=== PATIENT | female | born 1940 ===

== ENCOUNTER 2020-10-15 13:32 | Outpatient (REF) | payer MEDICARE, MEDICAID, SELFPAY ==
--- NOTE | 2020-10-15 13:37 | CT_ITS ---
EXAMINATION: CT HEAD WITHOUT CONTRAST CLINICAL INFORMATION: Dementia without behavioral disturbance. COMPARISON: None TECHNIQUE: Contiguous axial imaging was performed from the skull base to vertex without intravenous administration of contrast. This CT examination was performed using dose optimization techniques as appropriate, variously including the following: *Automated exposure control *Adjustment of mA and/or kV according to patient size (this includes techniques or standardized protocols for targeted exams where dose is matched to indication/reason for exam; i.e. extremities or head) *Use of iterative reconstruction technique DLP: 607 mGy-cm FINDINGS: There is no evidence of acute intracranial hemorrhage or territorial infarction. No abnormal mass effect or midline shift is seen. Louis to white matter differentiation is well preserved. No extra-axial fluid collections are identified. The lateral ventricles are enlarged with mild cortical sulcal prominence. There is diffuse periventricular hypodensity suggestive of chronic small vessel ischemic changes The osseous structures and soft tissues are normal. The mastoid air cells and visualized portions of the paranasal sinuses are well aerated. CT/CT head/brain wo con IMPRESSION: No acute intracranial process seen. There is no scalp soft tissue abnormality. Bilateral paranasal sinuses and mastoid air cells are well-aerated.
== END 2020-10-15 13:33 | disposition home or self-care (01) ==
LOC: HO.CT 13:32
PROVIDERS: PCP Internal Medicine; Visit Provider Internal Medicine
DX: F03.90 Unspecified dementia, unspecified severity, without behavioral disturbance, psychotic disturbance, mood disturbance, and anxiety (principal); R41.82 Altered mental status, unspecified
CPT/HCPCS: 70450

== ENCOUNTER 2024-09-17 08:58 | Emergency (ER) | payer MEDICARE, MEDICAID, SELFPAY ==
--- NOTE | ~2024-09-17 | XR_ITS ---
EXAMINATION: Right forearm and right tibia and fibula. COMPARISON: None. CLINICAL INDICATION: Fall, bruising right lower extremity. FINDINGS: RIGHT FOREARM 2 VIEWS: There is no visible acute fracture, bony abnormality or soft tissue laceration or swelling. RIGHT TIBIA AND FIBULA 2 VIEWS: There is no visible acute fracture or bony abnormality. Especially no abnormality seen in the proximal right lower leg. The soft tissues are normal. XR/XR forearm RT 2V IMPRESSION: Unremarkable right forearm exam. Unremarkable right tibia and fibula. Electronically signed by: Arthur Salinas MD 09/17/2024 10:56 AM EST
--- NOTE | ~2024-09-17 | CT_ITS ---
Examination: CT chest, CT abdomen and pelvis with IV contrast. CLINICAL INDICATION: Trauma. COMPARISON: None. TECHNIQUE: 5 mm thin axial and reformatted 3 mm thin sagittal and coronal images of chest, abdomen and pelvis without and following IV 85 mL Omnipaque 350. DOSE LOWERING TECHNIQUES: This CT examination was performed using dose optimization techniques as appropriate, variously including the following: - Automated exposure control - Adjustment of mA and/or kV according to patient size (this includes techniques or standardized protocols for targeted exams where dose is matched to indication/reason for exam; i.e. extremities or head) - Use of iterative reconstruction technique DLP: 1225 FINDINGS: Chest: The lungs are fairly well-expanded and clear acute pneumonic process, contusion or consolidation. Thyroid lobes are symmetrical. The central trachea and the bronchi are widely patent. The heart size is borderline normal. There is good opacification of aorta without dissection or aneurysm. The pulmonary artery is well-opacified. There is mild coronary artery calcification present. No pericardial effusion seen. No abnormal sized mediastinal or hilar lymph nodes seen. There is no pleural effusion or thickening. The axilla and the chest wall is unremarkable. Bone windows reveal no lytic or sclerotic process seen. Abdomen and pelvis: The liver is normal size, homogeneous density and normal contour. No focal lesion or intrahepatic ductal dilatation. The gallbladder is contracted and not visualized. Visualized spleen, pancreas and bilateral adrenal glands are unremarkable. There is normal symmetrical kidney nephrograms without radiopaque calculi or hydronephrosis. There is bilateral extrarenal kidney pelvises. Perinephric soft tissues are normal. The abdominal aorta is of normal caliber. No abnormal size retroperitoneal lymph nodes or mass seen. Scattered stool, diverticuli are seen in colon without diverticulitis or colonic distention. Appendix is not visualized. The small bowel loops are normal caliber. The stomach is nondistended. Is likely hysterectomy changes. The urinary bladder is unremarkable. There is no free fluid in the pelvis No aggressive lytic or sclerotic process seen. There is inferior endplate Schmorl's node T12 vertebra. CT/CT abdomen pelvis w IV con IMPRESSION: No acute process in the chest, abdomen and pelvis. Colonic diverticulosis without diverticulitis There are no osseous abnormality. Electronically signed by: Arthur Salinas MD 09/17/2024 12:25 PM [facility]
--- NOTE | ~2024-09-17 | XR_ITS ---
EXAMINATION: Right forearm and right tibia and fibula. COMPARISON: None. CLINICAL INDICATION: Fall, bruising right lower extremity. FINDINGS: RIGHT FOREARM 2 VIEWS: There is no visible acute fracture, bony abnormality or soft tissue laceration or swelling. RIGHT TIBIA AND FIBULA 2 VIEWS: There is no visible acute fracture or bony abnormality. Especially no abnormality seen in the proximal right lower leg. The soft tissues are normal. XR/XR tibia fibula RT 2V IMPRESSION: Unremarkable right forearm exam. Unremarkable right tibia and fibula. Electronically signed by: Arthur Salinas MD 09/17/2024 10:56 AM [facility]
--- NOTE | ~2024-09-17 | CT_ITS ---
EXAMINATION: CT brain, CT cervical spine and CT facial bones without contrast. CLINICAL INDICATION: Fall, head strike. COMPARISON: None. TECHNIQUE: Axial 5 mm thin and reformatted 2 mm thin sagittal and coronal images of cervical spine were obtained. Subsequently axial 3 mm thin and reformatted 2 mm thin sagittal and coronal images of cervical spine were obtained. Lastly axial 1.5 mm thin and reformatted 1.5 mm thin sagittal and coronal images of cervical spine were obtained. DLP 1217. DOSE LOWERING TECHNIQUES: This CT examination was performed using dose optimization techniques as appropriate, variously including the following: - Automated exposure control - Adjustment of mA and/or kV according to patient size (this includes techniques or standardized protocols for targeted exams where dose is matched to indication/reason for exam; i.e. extremities or head) - Use of iterative reconstruction technique. FINDINGS: BRAIN: There is no acute intra-axial, extra-axial bleed, masses or midline shift. There is no acute infarction in evolution. The radial white matter differentiation is maintained normal. The lateral ventricles are symmetrical in size and configuration without enlargement. There is a left frontal scalp hematoma without calvarial fracture. Bilateral paranasal sinuses and mastoid air cells are well-aerated. CERVICAL SPINE: On sagittal reconstructed images there is mild straightening of cervical lordosis. There is loss of C6-C7 disc height with moderate ventral spondylosis. Rest of the disc heights are normal. The vertebral heights and alignment is preserved. The craniovertebral junction and the C1-C2 alignment is normal. There is no visible acute fracture, dislocation or subluxation seen. The prevertebral and paravertebral soft tissues are normal. The airway appears widely patent. The lung apices are clear. FACIAL BONES: The paranasal sinuses and visualized mastoid air cells are well-aerated. The maxillofacial, nasal bones are intact. The lamina of the pressure and the cribriform plate appears normal. Bilateral TM joints and the mandible appears intact. The soft tissues are normal. CT/CT cervical spine wo IV con IMPRESSION: Left frontal scalp hematoma without calvarial fracture or intracranial bleed. Unremarkable CT facial bones. Mild straightening of cervical lordosis with degenerative disc changes and ventral cervical spondylosis C6-C7 disc level. No acute fracture or dislocation seen. Electronically signed by: Arthur Salinas MD 09/17/2024 11:55 AM EST
--- NOTE | ~2024-09-17 | CT_ITS ---
Examination: CT chest, CT abdomen and pelvis with IV contrast. CLINICAL INDICATION: Trauma. COMPARISON: None. TECHNIQUE: 5 mm thin axial and reformatted 3 mm thin sagittal and coronal images of chest, abdomen and pelvis without and following IV 85 mL Omnipaque 350. DOSE LOWERING TECHNIQUES: This CT examination was performed using dose optimization techniques as appropriate, variously including the following: - Automated exposure control - Adjustment of mA and/or kV according to patient size (this includes techniques or standardized protocols for targeted exams where dose is matched to indication/reason for exam; i.e. extremities or head) - Use of iterative reconstruction technique DLP: 1225 FINDINGS: Chest: The lungs are fairly well-expanded and clear acute pneumonic process, contusion or consolidation. Thyroid lobes are symmetrical. The central trachea and the bronchi are widely patent. The heart size is borderline normal. There is good opacification of aorta without dissection or aneurysm. The pulmonary artery is well-opacified. There is mild coronary artery calcification present. No pericardial effusion seen. No abnormal sized mediastinal or hilar lymph nodes seen. There is no pleural effusion or thickening. The axilla and the chest wall is unremarkable. Bone windows reveal no lytic or sclerotic process seen. Abdomen and pelvis: The liver is normal size, homogeneous density and normal contour. No focal lesion or intrahepatic ductal dilatation. The gallbladder is contracted and not visualized. Visualized spleen, pancreas and bilateral adrenal glands are unremarkable. There is normal symmetrical kidney nephrograms without radiopaque calculi or hydronephrosis. There is bilateral extrarenal kidney pelvises. Perinephric soft tissues are normal. The abdominal aorta is of normal caliber. No abnormal size retroperitoneal lymph nodes or mass seen. Scattered stool, diverticuli are seen in colon without diverticulitis or colonic distention. Appendix is not visualized. The small bowel loops are normal caliber. The stomach is nondistended. Is likely hysterectomy changes. The urinary bladder is unremarkable. There is no free fluid in the pelvis No aggressive lytic or sclerotic process seen. There is inferior endplate Schmorl's node T12 vertebra. CT/CT chest w IV con IMPRESSION: No acute process in the chest, abdomen and pelvis. Colonic diverticulosis without diverticulitis There are no osseous abnormality. Electronically signed by: Arthur Salinas MD 09/17/2024 12:25 PM [facility] [place]
[2024-09-17 09:08] VITALS: BP 216/76; PULSE 56; RESP 16; TEMP 36.6; O2SAT 97; BMI 29.4
--- NOTE | 2024-09-17 10:09 | ED_ITS ---
HPI - General Adult General Chief complaint: Trauma Stated complaint: Fall - facial lacs Time Seen by Provider: 09/17/24 09:14 Source: patient and family (patient's daughter and granddaughter) Mode of arrival: ambulatory Limitations: language barrier (patient declined [facility] [place] seismic interpreter - requested to use family member. ) History of Present Illness ED Provider: Nica Garcia PA-C HPI narrative: Patient is an 84 year old assigned female at with a history of HTN presenting to the emergency department today with left forehead laceration after a fall. Patient states that she tripped and fell down 8 stairs, hitting her head. Patient's daughter states that she witnessed the fall and the patient did fall down 8 steps but did not lose consciousness. Patient states that she is not on any anti-coagulant medications. Patient denies any dizziness, lightheadedness, abdominal pain, nausea, vomiting, fever, chills, blurry vision, double vision, loss of vision, chest pain, difficulty breathing, shortness of breath, back pain, night sweats, pain with urination, increased urinary frequency, increased urinary urgency, blood in her urine or stool, syncope or a near syncopal episode, bowel incontinence, bladder incontinence, or any other complaints at this time. Relieving factors: none Exacerbating factors: none Associated symptoms: denies other symptoms Treatments prior to arrival: none Related Data Previous Rx's ?Medication ?Instructions ?Recorded amoxicillin 875 mg-potassium 1 tab PO BID 10 days #20 tabs 09/17/24 clavulanate 125 mg tablet potassium chloride 10 mEq 10 meq PO DAILY 7 days #7 tabs 09/17/24 tablet,extended release (Klor-Con) Allergies Allergy/AdvReac Type Severity Reaction Status Date / Time No Known Allergies Allergy Verified 09/17/24 09:10 Review of Systems 2 Constitutional: Constitutional: Reports no additional constitutional complaints, Denies chills, Denies fever(s) and Denies night sweats Eyes: Eyes: Reports no additional eye complaints, Denies blurry vision, Denies change in vision, Denies diplopia, Denies eye discharge, Denies loss of vision and Denies eye pain ENT: Denies dizziness Comments: left forehead laceration left forehead abrasion nasal abrasion Cardiovascular: Cardiovascular: Reports no additional cardiovascular complaints, Denies chest pain, Denies lightheadedness, Denies Loss of Consciousness and Denies dyspnea Respiratory: Respiratory: Reports no additional respiratory complaints and Denies dyspnea Gastrointestinal: Gastrointestinal: Reports no additional gastrointestinal complaints, Denies abdominal pain, Denies melena, Denies hematochezia, Denies change in bowel habits and Denies change in stool character Genitourinary: Genitourinary: Denies hematuria, Denies urinary frequency, Denies dysuria, Denies urinary incontinence, Denies urinary hesitancy and Denies urinary urgency Musculoskeletal: Musculoskeletal: Reports no additional musculoskeletal complaints, Denies numbness and Denies tingling Neurologic: Denies dizziness, Denies loss of vision, Denies numbness and Denies tingling Psychiatric: Psychiatric: Reports no additional psychiatric complaints Endocrine: Endocrine: Reports no additional endocrine complaints Hematologic/Lymphatic: Hematologic/Lymphatic: Reports no additional hematologic/lymphatic complaints Allergic/Immunologic: Allergic/Immunologic: Reports no additional allergic/immunologic complaints PMFSH Past Medical History Attestation statement: The following information was validated with the patient. Source: old records reviewed and nursing notes reviewed Physical Exam ED Vital Signs: Vital Signs - 24 hr 09/17/24 09:08 09/17/24 12:57 Temperature 98 F 98.1 F Pulse Rate 56 59 Respiratory Rate 16 16 Blood Pressure 216/76 H 184/89 H Pulse Oximetry 97 97 Oxygen Delivery Method Room Air Room Air BMI result Body Mass Index 29.4 Const General: cooperative, no acute distress, alert and awake Nutritional Appearance: well nourished Orientation/consciousness: patient oriented x3 Limitations: no limitations HENMT Head: Yes normal to inspection Ears: hearing grossly normal bilaterally and external ears normal General nose exam: no nasal discharge noted, no epistaxis and Other nasal findings present (abrasion present to the bridge of the nose) Face images: 2 1. superficial abrasion / skin tear - no active bleeding 2. superficial laceration / skin tear - no active bleeding 3. abrasion - no active bleeding Mouth: Normal oral and palatal mucosa present, no drooling and no muffled voice Eyes General: appearance normal, both eyes and all related structures Periorbital: periorbital findings normal Eyelids: Yes eyelids normal Conjunctivae: conjunctivae normal Pupils: Equal, round and reactive pupils present EOM: EOMs intact bilaterally Neck Neck: Yes normal visual inspection, Yes full ROM and Yes no lymphadenopathy Chest Chest palpation & inspection: normal inspection of the chest Resp Effort & Inspection: normal respiratory effort and able to speak in complete sentences GI Inspection: Yes normal to inspection Neuro General: patient oriented x3 and moves all extremities Cranial nerves: Yes Equal, round and reactive pupils present Cognition (Neuro): normal cognition Extrem General: Yes full ROM and Yes capillary refill normal Elbow/forearm/wrist images: 2 1. skin tear - no active bleeding Hand/finger images: 2 1. partially avulsed right thumb nail Psych Appearance: grossly normal Mental Status: mental status grossly normal Affect: normal affect Attitude: cooperative Thought process: Normal thought process present Thought content: Normal thought content present Insight: Good insight present (Psych) Medications Administered Discontinued Medications Generic Name Dose Route Start Last Admin Trade Name Freq PRN Reason Stop Dose Admin Diphtheria/Tetanus/Acell Pertussis 0.5 ml 09/17/24 12:36 09/17/24 12:51 Diphth,Pertus(Acell),Tet Adult 0.5 Ml Syringe IM 09/17/24 12:37 0.5 ml .ONCE ONE Administration Potassium Chloride 10 meq in 100 mls @ 100 mls/hr 09/17/24 11:15 09/17/24 12:41 Potassium Chloride/H20 IV 09/17/24 15:14 Infused Q1H LEIDA Infusion Potassium Chloride 10 meq in 100 mls @ 100 mls/hr 09/17/24 12:31 09/17/24 12:52 Potassium Chloride/H20 IV 09/17/24 13:30 Not Given ONCE ONE Iohexol 100 ml 09/17/24 11:42 09/17/24 11:42 Iohexol 350 Mg/Ml 100 Ml Infus..Btl IV 09/17/24 11:43 85 ml ONCE ONE Administration Potassium Chloride 40 meq 09/17/24 12:31 09/17/24 12:51 Potassium Chloride Packet 20 Meq Packet PO 09/17/24 12:32 40 meq ONCE ONE Administration Procedures Procedure Narrative Procedure Narrative: patient had a partially avulsed right thumb nail that the patient and her family requested I trim down. Patient's right thumb nail was partially removed revealing an intact but exposed nail bed. Patient's nail was partially removed and the nail bed was covered with a non adherent bandage - without incident. Laceration Laceration 1: Site: face Side (If applicable): left Size (cm): 1 Description: irregular Depth: simple, single layer Pre-repair: irrigated extensively and deep structures intact Skin layer closed with: other (dermabond) Size (cm): other (dermabond) Technique: other (dermabond) Laceration 2: Site: face Side (If applicable): left Size (cm): 1.5 Description: irregular Depth: simple, single layer Pre-repair: irrigated extensively and deep structures intact Skin layer closed with: other (dermabond) Size (cm): other (dermabond) Technique: other (dermabond) right dorsal forearm: Site: upper extremity Side (If applicable): right Size (cm): 2 Description: irregular Depth: simple, single layer Pre-repair: deep structures intact Skin layer closed with: other (dermabond) Size (cm): other (dermabond) Technique: other (dermabond) Medical Decision Making Medical Decision Making MDM Narrative: Patient is an 84 year old assigned female at with a history of HTN presenting to the emergency department today with left forehead laceration after a fall. Patient's physical exam was as noted in the physical exam portion of this note. Patient's blood work showed a mildly elevated WBC count of 12.1 and a potassium of 3.0 but were otherwise unremarkable. Patient's right forearm and tib fib x-rays showed no acute process. Patient's CT head, c-spine, chest, and abdomen/pelvis showed no acute process. I explained my physical exam findings as well as all test results to the patient, the patient's daughter, and the patient's grand daughter. I answered all questions asked by the patient, the patient's daughter, and the patient's grand daughter. Patient was brought up to date on her tetanus status. Patient was given IV and PO Potassium. Patient stated that she did not want to remain in the department for the full 40 meq potassium IV and would prefer to do the other portion PO. Orders were modified accordingly. Patient's numerous skin tears / laceration was repaired with dermabond - per procedure notes, without incident. Patient's partially avulsed right thumb nail was addressed, per the procedure note, without incident. Patient's PMS was intact prior to and after all wound repair / procedures. I stressed the importance of the patient taking her medication as directed (either prescribed or as the over the counter packaging recommends). I stressed the importance of the patient following up with her primary care provider. I stressed the importance of the patient returning to the emergency department immediately if her symptoms were to worsen or if she were to develop any dizziness, shortness of breath, difficulty breathing, chest pain, blurry vision, loss of vision, nausea, vomiting, abdominal pain, fever, chills, back pain, or any other complaints. Patient, the patient's daughter, and the patient's granddaughter verbalized agreement and understanding with this treatment plan and discharge. Differential Diagnosis Differential Diagnoses: The differential diagnosis associated with the presentation includes Fall Hypokalemia Forehead laceration Forehead skin tear Right forearm skin tear Admission/Observation Consideration of admission/observation: Escalation of care including admission/observation considered Patient would have been admitted to the hospital had her work up had any findings where hospital admission was appropriate and her clinical presentation warranted hospital admission. Lab Data [facility] Lab Attestation statement: I reviewed the patient's lab results. My interpretation of these results are in the [facility] Rationale portion of this note. 09/17/24 10:24 09/17/24 10:24 Labs: Lab Results 09/17/24 Range/Units 10:24 WBC 12.1 H (4.8-10.8) X10*3/uL RBC 5.08 (4.20-5.50) X10*6/uL Hgb 14.1 (12.0-16.0) g/dl Hct 42.7 (37.0-47.0) % MCV 84.1 (80.0-98.0) fL MCH 27.8 (27.0-33.0) pg MCHC 33.0 (31.0-35.0) g/dl RDW 12.8 (11.0-16.0) % Plt Count 225 (160-400) X10*3/uL MPV 10.4 (9.4-12.3) fL Immature Gran % (Auto) 0.8 H (0.0-0.4) % Neut % (Auto) 80.5 H (45-73) % Lymph % (Auto) 11.8 L (20-40) % Butler % (Auto) 5.9 (2-11) % Eos % (Auto) 0.7 (0-4) % Baso % (Auto) 0.3 (0-2) % Lymph # (Auto) 1.4 (1.2-4.9) X10*3/uL Butler # (Auto) 0.7 (0.1-1.2) X10*3/uL Eos # (Auto) 0.1 (0.0-0.4) X10*3/uL Baso # (Auto) 0.0 (0.0-0.2) X10*3/uL Abs Immat Gran (auto) 0.10 H (0.00-0.03) X10*3/uL Absolute Neuts (auto) 9.7 H (2.0-8.3) x10*3/uL Absolute Nucleated RBC 0.000 (0.0-0.012) X10*3/uL Nucleated RBC % (auto) 0.0 (0.0-0.2) /100WBC PT 11.0 (10.9-12.4) SEC INR 0.9 (0.9-1.1) Sodium 141 (135-145) mmol/L Potassium 3.0 L (3.3-5.1) mmol/L Chloride 106 (96-108) mmol/L Carbon Dioxide 28 (22-29) mmol/L Anion Gap 10 L (12-20) BUN 13 (9-16) mg/dL Creatinine 1.19 (0.5-1.4) mg/dL Estim Creat Clear Calc 30.1 Estimated GFR 43 Random Glucose 113 (60-115) mg/dL Calcium 9.4 (8.4-10.2) mg/dL Magnesium 2.0 (1.6-2.6) mg/dL Total Bilirubin 0.9 (0.0-1.0) mg/dL AST 31 (5-31) U/L ALT 12 (0-31) U/L Alkaline Phosphatase 65 (39-117) U/L Total Protein 7.9 (6.5-8.0) g/dL Albumin 3.7 (3.5-5.0) g/dL Independent Interpretation I performed an independent interpretation of an: Plain X-Ray and CT Scan Interpretation: My interpretation is in agreement with the radiologist's impression of these imaging studies. L Report Number: [id number]: Total DLP = 1217.00 mGy-cm EXAMINATION: CT brain, CT cervical spine and CT facial bones without contrast. CLINICAL INDICATION: Fall, head strike. COMPARISON: None. TECHNIQUE: Axial 5 mm thin and reformatted 2 mm thin sagittal and coronal images of cervical spine were obtained. Subsequently axial 3 mm thin and reformatted 2 mm thin sagittal and coronal images of cervical spine were obtained. Lastly axial 1.5 mm thin and reformatted 1.5 mm thin sagittal and coronal images of cervical spine were obtained. DLP 1217. DOSE LOWERING TECHNIQUES: This CT examination was performed using dose optimization techniques as appropriate, variously including the following: - Automated exposure control - Adjustment of mA and/or kV according to patient size (this includes techniques or standardized protocols for targeted exams where dose is matched to indication/reason for exam; i.e. extremities or head) - Use of iterative reconstruction technique. FINDINGS: BRAIN: There is no acute intra-axial, extra-axial bleed, masses or midline shift. There is no acute infarction in evolution. The radial white matter differentiation is maintained normal. The lateral ventricles are symmetrical in size and configuration without enlargement. There is a left frontal scalp hematoma without calvarial fracture. Bilateral paranasal sinuses and mastoid air cells are well-aerated. CERVICAL SPINE: On sagittal reconstructed images there is mild straightening of cervical lordosis. There is loss of C6-C7 disc height with moderate ventral spondylosis. Rest of the disc heights are normal. The vertebral heights and alignment is preserved. The craniovertebral junction and the C1-C2 alignment is normal. There is no visible acute fracture, dislocation or subluxation seen. The prevertebral and paravertebral soft tissues are normal. The airway appears widely patent. The lung apices are clear. FACIAL BONES: The paranasal sinuses and visualized mastoid air cells are well- aerated. The maxillofacial, nasal bones are intact. The lamina of the pressure and the cribriform plate appears normal. Bilateral TM joints and the mandible appears intact. The soft tissues are normal. CT/CT cervical spine wo IV con IMPRESSION: Left frontal scalp hematoma without calvarial fracture or intracranial bleed. Unremarkable CT facial bones. Mild straightening of cervical lordosis with degenerative disc changes and ventral cervical spondylosis C6-C7 disc level. No acute fracture or dislocation seen. Electronically signed by: Arthur Salinas MD 09/17/2024 11:55 AM EST Dictated By: Arthur Salinas MD Signed By: Electronically signed by Arthur Salinas MD 09/17/24 1155 EXAMINATION: Right forearm and right tibia and fibula. COMPARISON: None. CLINICAL INDICATION: Fall, bruising right lower extremity. FINDINGS: RIGHT FOREARM 2 VIEWS: There is no visible acute fracture, bony abnormality or soft tissue laceration or swelling. RIGHT TIBIA AND FIBULA 2 VIEWS: There is no visible acute fracture or bony abnormality. Especially no abnormality seen in the proximal right lower leg. The soft tissues are normal. XR/XR forearm RT 2V IMPRESSION: Unremarkable right forearm exam. Unremarkable right tibia and fibula. Electronically signed by: Arthur Salinas MD 09/17/2024 10:56 AM EST Dictated By: Arthur Salinas MD Signed By: Electronically signed by Arthur Salinas MD 09/17/24 1056 Report Number: [id number]: Total DLP = 1225.00 mGy-cm Examination: CT chest, CT abdomen and pelvis with IV contrast. CLINICAL INDICATION: Trauma. COMPARISON: None. TECHNIQUE: 5 mm thin axial and reformatted 3 mm thin sagittal and coronal images of chest, abdomen and pelvis without and following IV 85 mL Omnipaque 350. DOSE LOWERING TECHNIQUES: This CT examination was performed using dose optimization techniques as appropriate, variously including the following: - Automated exposure control - Adjustment of mA and/or kV according to patient size (this includes techniques or standardized protocols for targeted exams where dose is matched to indication/reason for exam; i.e. extremities or head) - Use of iterative reconstruction technique DLP: 1225 FINDINGS: Chest: The lungs are fairly well-expanded and clear acute pneumonic process, contusion or consolidation. Thyroid lobes are symmetrical. The central trachea and the bronchi are widely patent. The heart size is borderline normal. There is good opacification of aorta without dissection or aneurysm. The pulmonary artery is well-opacified. There is mild coronary artery calcification present. No pericardial effusion seen. No abnormal sized mediastinal or hilar lymph nodes seen. There is no pleural effusion or thickening. The axilla and the chest wall is unremarkable. Bone windows reveal no lytic or sclerotic process seen. Abdomen and pelvis: The liver is normal size, homogeneous density and normal contour. No focal lesion or intrahepatic ductal dilatation. The gallbladder is contracted and not visualized. Visualized spleen, pancreas and bilateral adrenal glands are unremarkable. There is normal symmetrical kidney nephrograms without radiopaque calculi or hydronephrosis. There is bilateral extrarenal kidney pelvises. Perinephric soft tissues are normal. The abdominal aorta is of normal caliber. No abnormal size retroperitoneal lymph nodes or mass seen. Scattered stool, diverticuli are seen in colon without diverticulitis or colonic distention. Appendix is not visualized. The small bowel loops are normal caliber. The stomach is nondistended. Is likely hysterectomy changes. The urinary bladder is unremarkable. There is no free fluid in the pelvis No aggressive lytic or sclerotic process seen. There is inferior endplate Schmorl's node T12 vertebra. CT/CT abdomen pelvis w IV con IMPRESSION: No acute process in the chest, abdomen and pelvis. Colonic diverticulosis without diverticulitis There are no osseous abnormality. Electronically signed by: Arthur Salinas MD 09/17/2024 12:25 PM [facility] [place] Dictated By: Arthur Salinas MD Signed By: Electronically signed by Arthur Salinas MD 09/17/24 1225 Radiology Impression Discussion of test interpretation with radiology: I have reviewed the radiologist's reading. Independent Historian Clinical information obtained from an independent historian. History obtained from or confirmed by: Other (patient's daughter and grand daughter provided additional history and confirmed the history provided by the patient.) Prescription Management I considered prescription management with: Antibiotic (patient given a prophylactic antibiotic given her mechanism of injury and clinical presentation) Critical Care Time Critical Care Time Critical Care Time: Yes Total Critical Care Time: 41 Attestation: I spent 41 minutes of Critical Care Time with this patient. This does not include time spent on separately reported billable procedures. Discharge Plan Discharge Clinical Impression: Fall, Abrasion, Skin tear of right upper extremity, Avulsion of nail of right thumb, Acute hypokalemia Patient Disposition: Home, Self-Care Instructions: Potassium Content of Foods List (ED), Hypokalemia (ED), Fall Prevention for Older Adults (ED), Skin Adhesive Care (ED), Nail Avulsion (ED) Additional Instructions: Do NOT get the areas with skin adhesive wet (left side of forehead and right forearm). The skin adhesive will dissolve / fall off on it's own. Follow up with your primary care provider. Take your antibiotic as prescribed. Return to the emergency department immediately if your symptoms worsen or if you develop any dizziness, shortness of breath, difficulty breathing, chest pain, blurry vision, loss of vision, nausea, vomiting, abdominal pain, fever, chills, back pain, or any other complaints. NO moje las zonas con adhesivo cut?alba (lado gregg de la frente y antebrazo derecho). El adhesivo cut?alba se disolver? / caer? por s? solo. Consulte a pulido m?dico de cabecera. Mcbee el antibi?jenna que le hayan recetado. Acuda inmediatamente al servicio de urgencias si shantell s?ntomas empeoran o si presenta mareos, falta de aliento, dificultad para respirar, dolor tor?cico, visi?n borrosa, p?rdida de visi?n, n?useas, v?mitos, dolor abdominal, fiebre, escalofr?os, dolor de espalda o cualquier otra molestia. Prescriptions: New amoxicillin-pot clavulanate 875-125 mg tablet 1 tab PO BID 10 Days Qty: 20 0RF potassium chloride [Klor-Con 10] 10 mEq tablet extended release 10 meq PO DAILY 7 Days Qty: 7 0RF Referrals: Rene Mcmahan MD [Primary Care Provider] - Interventions: ED Discharge Assessment Last Done: 09/17/24 12:57 Discharge Date/Time: 09/17/24 12:59 Print Language: Kazakh
[2024-09-17 10:36] LABS: MANUAL DIFF FLAG NO
[2024-09-17 10:37] LABS: Basophils Percent Auto 0.3 % (0-2); Eosinophils Absolute Auto 0.1 X10*3/uL (0.0-0.4); Eosinophils Percent Auto 0.7 % (0-4); Hematocrit 42.7 % (37.0-47.0); Hemoglobin 14.1 g/dl (12.0-16.0); Imm Gran Pct Auto 0.8 % (0.0-0.4); Lymphocytes Absolute Auto 1.4 X10*3/uL (1.2-4.9); Lymphocytes Percent Auto 11.8 % (20-40); Mean Corpuscular Hemoglobin 27.8 pg (27.0-33.0); Mean Corpuscular Volume 84.1 fL (80.0-98.0); Mean Platelet Volume 10.4 fL (9.4-12.3); Monocytes Absolute Auto 0.7 X10*3/uL (0.1-1.2); Monocytes Percent Auto 5.9 % (2-11); Neutrophils Absolute Auto 9.7 x10*3/uL (2.0-8.3); Neutrophils Percent Auto 80.5 % (45-73); Platelet Count 225 X10*3/uL (160-400); Red Blood Count 5.08 X10*6/uL (4.20-5.50); Red Cell Distribution Width 12.8 % (11.0-16.0); White Blood Count 12.1 X10*3/uL (4.8-10.8)
[2024-09-17 10:43] LABS: INTERNATIONAL NORM RATIO 0.9 (0.9-1.1)
[2024-09-17 11:04] LABS: Alanine Aminotransferase 12 U/L (0-31); Albumin Level 3.7 g/dL (3.5-5.0); Alkaline Phosphatase 65 U/L (39-117); Anion Gap 10 (12-20); Aspartate Amino Transferase 31 U/L (5-31); Bilirubin Total 0.9 mg/dL (0.0-1.0); Blood Urea Nitrogen 13 mg/dL (9-16); Calcium 9.4 mg/dL (8.4-10.2); Carbon Dioxide 28 mmol/L (22-29); Chloride 106 mmol/L (96-108); Creatinine Clr Calc Pharmacy 30.1; Estimated Glomerular Filt Rate 43; Glucose Random 113 mg/dL (60-115); Sodium 141 mmol/L (135-145); Total Protein 7.9 g/dL (6.5-8.0)
[2024-09-17] MEDS: iohexoL 350 MG/ML 100 ML INFUS..BTL IV (11:42)
[2024-09-17] MEDS: Potassium Chloride/H20 10 MEQ/100 ML PIGGYBACK 100 MEQ IV (11:45)
[2024-09-17] MEDS: Diphth,Pertus(ACell),Tet Adult 0.5 ML SYRINGE IM (12:51)
[2024-09-17] MEDS: Potassium Chloride Packet 20 MEQ PACKET 40 MEQ PO (12:51)
[2024-09-17 12:57] VITALS: BP 184/89; PULSE 59; RESP 16; TEMP 36.7; O2SAT 97
== END 2024-09-17 12:59 | disposition home or self-care (01) ==
PROVIDERS: Physician Assistant Medical; Emergency Provider Emergency Medicine; PCP Internal Medicine
DX: S01.81XA Laceration without foreign body of other part of head, initial encounter (principal); S61.011A Laceration without foreign body of right thumb without damage to nail, initial encounter; S41.111A Laceration without foreign body of right upper arm, initial encounter; M54.2 Cervicalgia; R07.89 Other chest pain; M79.604 Pain in right leg; M79.601 Pain in right arm; R10.2 Pelvic and perineal pain; W10.9XXA Fall (on) (from) unspecified stairs and steps, initial encounter; Y93.89 Activity, other specified; Y92.89 Other specified places as the place of occurrence of the external cause; Y99.8 Other external cause status; Z23 Encounter for immunization; Z79.899 Other long term (current) drug therapy
CPT/HCPCS: 12001; 12051; 36415; 70450; 70486; 71260; 72125; 73090; 73590; 74177; 80053; 83735; 85025; 85610; 90471; 90715; 96365; 99283; 99284; J3480; Q9967

== ENCOUNTER → 2024-09-17 10:02 | Outpatient (BNV) | payer MEDICARE, MEDICAID, SELFPAY | PROVIDERS: Emergency Provider Emergency Medicine; PCP Internal Medicine; Visit Provider Radiology Diagnostic Radiology | DX: S80.11XA Contusion of right lower leg, initial encounter (principal); S09.90XA Unspecified injury of head, initial encounter; S40.921A Unspecified superficial injury of right upper arm, initial encounter | CPT/HCPCS: 70450; 70486; 71260; 72125; 73090; 73590; 74177 ==

== ENCOUNTER 2024-12-10 11:42 | Outpatient (REF) | payer MEDICARE, MEDICAID, SELFPAY ==
[2024-12-10 14:57] LABS: Alanine Aminotransferase 14 U/L (0-31); Albumin Level 3.8 g/dL (3.5-5.0); Alkaline Phosphatase 67 U/L (39-117); Anion Gap 9 (12-20); Aspartate Amino Transferase 24 U/L (5-31); Bilirubin Total 0.8 mg/dL (0.0-1.0); Blood Urea Nitrogen 18 mg/dL (9-16); Calcium 9.7 mg/dL (8.4-10.2); Carbon Dioxide 27 mmol/L (22-29); Chloride 109 mmol/L (96-108); Estimated Glomerular Filt Rate 51; Glucose Random 95 mg/dL (60-115); Potassium 4.2 mmol/L (3.3-5.1); Sodium 141 mmol/L (135-145); Total Protein 7.5 g/dL (6.5-8.0)
== END 2024-12-10 11:43 | disposition home or self-care (01) ==
LOC: HO.HHCL 11:42
PROVIDERS: Visit Provider General Practice
DX: I10 Essential (primary) hypertension (principal)
CPT/HCPCS: 36415; 80053